=== PATIENT | male | born 1955 | race Caucasian/White ===

== ENCOUNTER 2018-01-19 14:04 | Emergency (ER) | payer BC, OTHER ==
[2018-01-19 14:11] VITALS: TEMP 98.4
--- NOTE | 2018-01-19 14:37 | EDPHY ---
H & P Stated Complaint: TOOK 150 MG OF HIS MEDS INSTEAD OF 50 MG . AT 1345 Time Seen by Provider: 01/19/18 14:37 HPI/ROS: CHIEF COMPLAINT: Accidental ingestion of MAOI HISTORY OF PRESENT ILLNESS: The patient presents to the ED after an accidental ingestion of his MAOI. The patient accidentally took 100-150 mg of his Parnate. The patient is also on long-acting Depakote. The patient feels mildly flushed. He denies any headache, vision changes, chest pain palpitations. The patient states this was accidental. He denies any suicidal intent. He denies any depression or additional acute medical complaints. REVIEW OF SYSTEMS: A comprehensive 10 point review of systems is otherwise negative aside from elements mentioned in the history of present illness. Source: Patient Exam Limitations: No limitations - Personal History Current Tetanus/Diphtheria Vaccine: Unsure Current Tetanus Diphtheria and Acellular Pertussis (TDAP): Unsure Tetanus Vaccine Date: unknown - Medical/Surgical History Hx Asthma: Yes Hx Chronic Respiratory Disease: No Hx Diabetes: No Hx Cardiac Disease: No Hx Renal Disease: No Hx Cirrhosis: No Hx Alcoholism: No Hx HIV/AIDS: No Hx Splenectomy or Spleen Trauma: No Other PMH: ASTHMA. DEPRESSION/ BIPOLAR/ ANXIETY. varicele - Social History Smoking Status: Never smoked - Physical Exam Exam: General Appearance: Alert, no distress Eyes: Pupils equal and round no pallor or injection ENT, Mouth: Mucous membranes moist Respiratory: There are no retractions, lungs are clear to auscultation Cardiovascular: Regular rate and rhythm Gastrointestinal: Abdomen is soft and nontender, no masses, bowel sounds normal Neurological: A&O, normal motor function, normal sensory exam, normal cranial nerves Skin: Warm and dry, no rashes Musculoskeletal: Neck is supple nontender Extremities: symmetrical, full range of motion Constitutional: Initial Vital Signs Temperature (C) 36.9 C 01/19/18 14:08 Heart Rate 97 01/19/18 14:08 Respiratory Rate 16 01/19/18 14:08 Blood Pressure 131/98 H 01/19/18 14:08 O2 Sat (%) 97 01/19/18 14:08 O2 Delivery Mode Room Air Allergies/Adverse Reactions: tetanus toxoid, adsorbed Allergy (Verified 02/27/15 22:04) Home Medications: Medication Instructions Recorded Parnate 50 DAILY 02/27/15 carBAMazepine [Tegretol] 500 mg PO 02/27/15 Medical Decision Making - Diagnostics EKG Interpretation: EKG: Complete interpretation has been separately recorded in the [email or web address] archive. Summary impression: Sinus rhythm, first-degree AV block ED Course/Re-evaluation: The patient presents the ED after taking double dose of Parnate. The patient has stable vital signs. His EKG is within normal limits. The case was discussed with poison Control who reports that he may have some symptoms of flushing and anxiety however he is unlikely to developed a significant serotonin syndrome or cardiac arrhythmia. The patient is comfortable being discharged home with precautions. He will resume his regular medications tomorrow. Differential Diagnosis: Differential diagnosis considered includes cardiac arrhythmia, serotonin syndrome, hemodynamic instability, intentional overdose Departure - Departure Disposition: Home, Routine, Self-Care Clinical Impression: Accidental poisoning by MAOI (monoamine oxidase inhibitor) Condition: Good Instructions: Low [place]ram[place] Diet (ED) Additional Instructions: 1. Return to the ED for any chest pain, racing heart or other concerns. 2. Please follow up with your regular physician as scheduled. 3. Your case was discussed with poison Control. You can resume your regular dose of medication tomorrow. Referrals: NONE *PRIMARY CARE P,. [Primary Care Provider] - As per Instructions
--- NOTE | 2018-01-19 15:02 | CPEKG ---
Heart Rate: 58 RR Interval: 1034 P-R Interval: 236 QRSD Interval: 94 QT Interval: 396 QTC Interval: 389 P [place]: 36 QRS [place]: 31 T Wave [place]: 49 EKG Severity - ABNORMAL ECG - EKG Impression: SINUS RHYTHM EKG Impression: FIRST DEGREE AV BLOCK Electronically Signed By: Vega Epps 26-Jan-2018 10:51:26
[2018-01-19 15:29] VITALS: BP 133/71; PULSE 88; RESP 18; O2SAT 98
== END 2018-01-19 15:29 | disposition home or self-care (01) ==
DX: T43.1X1A Poisoning by monoamine-oxidase-inhibitor antidepressants, accidental (unintentional), initial encounter (principal); J45.909 Unspecified asthma, uncomplicated